=== PATIENT | male | born 1960 | race Caucasian/White ===

== ENCOUNTER → 2016-05-15 | Outpatient (CLI) | payer OTHER ==
[~2016-05-15] MED LIST: AMLODIPINE BESYL5 MG PO; BENADRYL25 M1 PO; ELIQUIS5 MG PO; FOLIC ACID1 MG PO; HUMIBID-LA600 MG PO; LEVAQUIN750 MG PO; LOSARTAN POTAS100 MG PO; METOPROLOL SUCC ER PO; MOBIC PO; MOBIC15 MG PO; OMEPRAZOLE40 M1 PO; PREDNISONE PO; PROAIR HFA8.5 GM IH; PROTONIX PO; SINGULAIR PO; SYMBICORT INH; THERAPEUTIC FOR1 TA1 PO; THIAMINE HCL100 M1 PO; TOPROL XL100 MG PO
--- NOTE | ~2016-05-15 | HM ---
Unit #: [id number] #: [id number] Patient: TASHA KISER [id number] [address] [address] [id number] O MR#: [id number] NAME: TASHA KISER : 1960 SEX: M STUDY DATE/TIME: UNIT: [facility] ROOM: STUDY DESCRIPTION: Holter Monitor Attending Physician: Didi Mast M.D. Referring Physician: Didi Mast M.D. Primary Care Physician: Didi Mast M.D. CARDIOLOGY REPORT EXAM Holter Monitor DATE APPLIED 05/15/2016 DATE SCANNED 05/21/2016 ORDERED BY Didi Mast M.D. READ BY Deion Herrera M.D. INDICATION Palpitations. SUMMARY The patient was monitored for 24 hours. A total of 108,725 QRS complexes were analyzed. Average heart rate was 75 beats per minute. Heart rate histogram appeared normal. Minimum heart rate was 38 beats per minute at approximately 2:20 p.m. Maximum heart rate 158 beats per minute at approximately 3:30 a.m. The rhythm was atrial fibrillation. Ventricular Ectopy: 46 isolated beats, with one five-beat run occurring at approximately 3:50 p.m. Symptoms: None reported. Patient Activated Event: None. IMPRESSION 1. Atrial fibrillation with rare ventricular ectopy, and one five-beat run. 2. Overall, controlled ventricular rate. Dictated by... Deion Herrera M.D. Unit #: [id number] #: [id number] Patient: TASHA KISER PJR/df TD: 05/22/2016 06:04 JOB #: [id number] CARDIOLOGY REPORT Page 1 of 1 X Deion Herrera MD HOLTER MONITOR REPORT
== END | disposition home or self-care (01) ==
LOC: CEKG 10:03
DX: R00.2 Palpitations (principal)
CPT/HCPCS: 93225; 93226

== ENCOUNTER → 2016-07-28 | Day surgery (SDC) | payer OTHER ==
--- NOTE | ~2016-07-28 | OR ---
Unit #: [id number] #: [id number] Patient: TASHA KISER [id number] [address] [address] [id number] O MR#: [id number] NAME: TASHA KISER ROOM: Date of Procedure: 07/28/2016 Admission Date: 07/28/2016 Surgeon: Tony Lazo M.D. : 1960 Attending Physician: Tony Lazo M.D. Primary Care Physician: Didi Mast M.D. OPERATIVE REPORT ADDENDUM PRIMARY CARE PHYSICIAN Didi Mast M.D. DESCRIPTION OF PROCEDURE The scope was advanced past rectosigmoid into descending colon. No diverticula were noticed in this area. The scope tip was then navigated all the way up to cecum with visualization of the ileocecal valve and the appendiceal orifice. Preparation was excellent with good visualization and photodocumentation was obtained. Successive segments of the colonic mucosa were examined upon withdrawal. The patient had a total of four polyps. The first one was in the transverse colon, this was about 8 mm in size. A second polyp was in descending colon, which was fulgurated using a snare cautery tip. Two additional polyps in the sigmoid colon, they were removed using snare polypectomy. The polyps ranged in size from 7 mm to 1.2 cm. The three retrieved polyps were sent for histology. The patient did not have any diverticulosis nor any hemorrhoids. The scope was then withdrawn and the patient returned to recovery area. He tolerated the procedure without any postprocedure complications. Dictated by... Radha Hernandez/cam TD: 07/30/2016 11:19 JOB #: [id number] OPERATIVE REPORT Page 1 of 1 X Tony Lazo MD X PROCEDURE OPERATIVE NOTE
--- NOTE | ~2016-07-28 | OR ---
Unit #: [id number] #: [id number] Patient: TASHA KISER [id number] [address] [address] [id number] O MR#: [id number] NAME: TASHA KISER ROOM: Date of Procedure: 07/28/2016 Admission Date: 07/28/2016 Surgeon: Tony Lazo M.D. : 1960 Attending Physician: Tony Lazo M.D. Primary Care Physician: Didi Mast M.D. OPERATIVE REPORT PREOPERATIVE DIAGNOSES Colorectal cancer screening in an average-risk patient. PROCEDURES PERFORMED Colonoscopy and polypectomy. POSTOPERATIVE DIAGNOSES The patient had 2 polyps in the sigmoid colon, 1 polyp in the descending colon, and 1 polyp in the transverse colon. The transverse colon and sigmoid polyps were removed, retrieved, and sent for histology. The descending colon polyp was fulgurated with the snare cautery tip. The removed polyps ranged in size from 8 mm to 1.2 cm. SEDATION USED MAC. DESCRIPTION OF PROCEDURE Following detailed explanation of the potential risks and complications of a colonoscopy, namely perforation, bleeding, and complications related to sedation, the patient was brought to the GI lab and laid in the left lateral decubitus position. A digital rectal examination was performed, which was normal. Lubricated tip of the Olympus video colonoscope was inserted through the anus and advanced under direct vision. DICTATION ENDS HERE Dictated by... Radha Hernandez/cam TD: 07/29/2016 05:11 JOB #: [id number] Unit #: [id number] #: [id number] Patient: TASHA KISER OPERATIVE REPORT Page 1 of 1 X Tony Lazo MD X PROCEDURE OPERATIVE NOTE
== END | disposition home or self-care (01) ==
LOC: COPS 12:26
DX: Z12.11 Encounter for screening for malignant neoplasm of colon (principal); D12.3 Benign neoplasm of transverse colon; D12.5 Benign neoplasm of sigmoid colon; K63.5 Polyp of colon; I10 Essential (primary) hypertension; F17.200 Nicotine dependence, unspecified, uncomplicated; M19.90 Unspecified osteoarthritis, unspecified site; Z79.1 Long term (current) use of non-steroidal anti-inflammatories (NSAID); Z79.01 Long term (current) use of anticoagulants; Z79.899 Other long term (current) drug therapy; Z96.643 Presence of artificial hip joint, bilateral; Z98.890 Other specified postprocedural states
CPT/HCPCS: 88305; J2250

== ENCOUNTER 2016-08-09 10:11 | Emergency (ER) | payer OTHER ==
--- NOTE | ~2016-08-09 | CT16 ---
[facility] A Service of [facility] RADIOLOGY TEXT RESULTS PATIENT: TASHA KISER LOCATION: [facility] : 56 UNIT #: [id number] AGE: [address]: Morteza Newman MD SEX: M ORDER DR: [id number] [facility] [address] [place], [place] [address] [id number] MR#: [id number] Acc #: [id number] NAME: TASHA KISER : 1960 SEX: M STUDY DATE/TIME: 08/09/2016 12:38 UNIT: [facility] ROOM: STUDY DESCRIPTION: CT Angio Chest for PE Ordering Physician: Murphy Newman M.D. Primary Care Physician: Didi Mast M.D. MEDICAL IMAGING REPORT This report is preliminary unless electronic signature is present EXAM CT angiogram chest with IV contrast HISTORY Shortness of air for 2 weeks. Atrial fibrillation. Hypertension. TECHNIQUE IV contrast enhanced CT angiogram of the chest was performed with 3-D reconstructions. This CT exam was performed with one or more of the following radiation dose reduction techniques: automatic exposure control, adjustment of mA and/or kV according to patient size, and iterative reconstruction. FINDINGS There are very mild patchy nodular infiltrates in the posterior upper lobes bilaterally and mild subpleural atelectasis in the posterior lower lobes bilaterally. No airspace infiltrates. No pleural effusions. No pulmonary embolus. Normal-caliber pulmonary arteries. Normal caliber thoracic aorta. No adenopathy. No pleural effusions. Small calcified inferior right hilar nodes and small calcified granuloma in the posterior right lower lobe. IMPRESSION 1. No pulmonary embolus. 2. Mild subpleural atelectasis in the posterior mid- and lower lungs bilaterally. 3. Mild nonspecific nodular interstitial infiltrates in the posterior upper lobes. These could be infectious or inflammatory. There is no adenopathy. [facility] A Service of [facility] RADIOLOGY TEXT RESULTS PATIENT: TASHA KISER LOCATION: [facility] : 56 UNIT #: [id number] AGE: [address]: Morteza Newman MD SEX: M ORDER DR: Dictated by... Neil Ordaz M.D. THIS IS AN ELECTRONICALLY VERIFIED REPORT Neil Ordaz M.D. at 08/09/2016 10:47 PM DFL/pcl TD: 08/09/2016 14:30 JOB #: [id number] MEDICAL IMAGING REPORT Page 1 of 1 COPY
[~2016-08-09 10:11] MED LIST changes: -METOPROLOL SUCC ER PO
[2016-08-09 11:12] LABS: BASOPHIL# 0.1 X10e3 (0-0.3); EOSINOPHIL# 0.2 X10e3 (0-0.7); EOSINOPHIL% 1.8 % (0.0-7.0); HEMATOCRIT 41.9 % (38.0-50.0); HEMOGLOBIN 13.9 gm/dL (13.0-16.0); LYMPHOCYTE# 1.2 X10e3 (1.0-3.5); LYMPHOCYTE% 14.2 % (17.0-45.0); MEAN CORPUSCULAR HEMOGLOBIN 29.9 PG (28-34); MEAN CORPUSCULAR HGB CONC 33.2 g/dL (30-36); MONOCYTE# 0.8 X10e3 (0-1.0); MONOCYTE% 9.6 % (3.0-12.0); NEUTROPHIL# 6.1 X10e3 (1.5-7.1); NEUTROPHIL% 73.4 % (40-75); PLATELET COUNT 147 X10e3 (140-420); RED BLOOD COUNT 4.66 X10e (3.90-5.60); RED CELL DISTRIBUTION WIDTH 13.6 % (11.0-15.5); WHITE BLOOD COUNT 8.4 X10e3 (4.0-10.5)
[2016-08-09 11:14] LABS: DIFF IND NO
[2016-08-09 11:29] LABS: INR 1.1; PARTIAL THROMBOPLASTIN TIME 29.2 SECONDS (23.5-31.3); PROTHROMBIN TIME (PATIENT) 11.7 SECONDS (10.0-11.7)
[2016-08-09 11:54] LABS: ALBUMIN SERUM 3.8 g/dL (3.5-5.0); BILIRUBIN, DIRECT 0.2 mg/dL (0.0-0.2); BILIRUBIN,INDIRECT 0.7 mg/dL (0.0-0.9); BILIRUBIN,TOTAL 0.9 mg/dL (0.2-2.0); CALCIUM SERUM 8.6 mg/dL (8.4-10.2); CREATININE SERUM 0.6 mg/dL (0.6-1.4); GLOM FILT RATE Estimated 110.9 mL/min (>60); PROTEIN TOTAL SERUM 7.1 g/dL (6.0-8.3)
[2016-08-15] MEDS ORDERED: METOPROLOL SUCC ER PO (09:29)
[2016-08-15] MEDS ORDERED: PROTONIX PO (09:30)
== END 2016-08-09 15:55 | disposition home or self-care (01) ==
LOC: CED 10:11
PROVIDERS: Emergency Medicine
DX: K21.9 Gastro-esophageal reflux disease without esophagitis (principal); D69.6 Thrombocytopenia, unspecified; E87.1 Hypo-osmolality and hyponatremia; I10 Essential (primary) hypertension; K92.1 Melena
CPT/HCPCS: 36415; 71275; 80048; 80076; 85025; 85610; 85730; 86850; 86900; 86901; 94640; 96361; 96374; 96375; 99284; C9113; J2405; Q9967

== ENCOUNTER → 2016-08-11 | Outpatient (CLI) | payer OTHER ==
[~2016-08-11] MED LIST changes: +METOPROLOL SUCC ER PO
[2016-08-11 18:00] LABS: HEMATOCRIT 38.4 % (38.0-50.0); HEMOGLOBIN 12.8 gm/dL (13.0-16.0); MEAN CORPUSCULAR HEMOGLOBIN 29.9 PG (28-34); MEAN CORPUSCULAR HGB CONC 33.2 g/dL (30-36); MEAN PLATELET VOLUME 8.1 FL (6.5-11.5); RED BLOOD COUNT 4.27 X10e (3.90-5.60); RED CELL DISTRIBUTION WIDTH 13.5 % (11.0-15.5)
[2016-08-11 18:19] LABS: BUN/CREATININE RATIO 13.33; CALCIUM SERUM 8.6 mg/dL (8.4-10.2); CREATININE SERUM 0.6 mg/dL (0.6-1.4); GLOM FILT RATE Estimated 110.9 mL/min (>60); POTASSIUM 4.5 mmol/L (3.5-5.1)
== END | disposition home or self-care (01) ==
LOC: CLAB 17:25
PROVIDERS: Nurse Practitioner
DX: K92.1 Melena (principal)
CPT/HCPCS: 36415; 80048; 85027

== ENCOUNTER → 2016-08-15 | Day surgery (SDC) | payer OTHER ==
[2016-08-15 13:37] LABS: BASOPHIL# 0.1 X10e3 (0-0.3); BASOPHIL% 1.2 % (0-2.5); EOSINOPHIL# 0.2 X10e3 (0-0.7); EOSINOPHIL% 1.8 % (0.0-7.0); HEMATOCRIT 40.4 % (38.0-50.0); HEMOGLOBIN 13.3 gm/dL (13.0-16.0); LYMPHOCYTE# 1.2 X10e3 (1.0-3.5); LYMPHOCYTE% 13.5 % (17.0-45.0); MEAN CELL VOLUME 90.5 FL (83-96); MEAN CORPUSCULAR HEMOGLOBIN 29.8 PG (28-34); MEAN PLATELET VOLUME 7.8 FL (6.5-11.5); MONOCYTE# 0.8 X10e3 (0-1.0); MONOCYTE% 9.7 % (3.0-12.0); NEUTROPHIL# 6.3 X10e3 (1.5-7.1); NEUTROPHIL% 73.8 % (40-75); PLATELET COUNT 159 X10e3 (140-420); RED BLOOD COUNT 4.47 X10e (3.90-5.60); RED CELL DISTRIBUTION WIDTH 13.9 % (11.0-15.5); WHITE BLOOD COUNT 8.6 X10e3 (4.0-10.5)
[2016-08-15 13:39] LABS: DIFF IND NO
[2016-08-15 14:09] LABS: BUN/CREATININE RATIO 8.75; CALCIUM SERUM 8.9 mg/dL (8.4-10.2); CREATININE SERUM 0.8 mg/dL (0.6-1.4); GLOM FILT RATE Estimated 98.5 mL/min (>60); POTASSIUM 4.4 mmol/L (3.5-5.1)
== END | disposition home or self-care (01) ==
LOC: COPS 08:56
PROVIDERS: Internal Medicine Gastroenterology
DX: K21.0 Gastro-esophageal reflux disease with esophagitis (principal); K29.00 Acute gastritis without bleeding; I48.91 Unspecified atrial fibrillation; M19.90 Unspecified osteoarthritis, unspecified site; Z85.22 Personal history of malignant neoplasm of nasal cavities, middle ear, and accessory sinuses; Z88.8 Allergy status to other drugs, medicaments and biological substances; Z79.1 Long term (current) use of non-steroidal anti-inflammatories (NSAID); Z79.01 Long term (current) use of anticoagulants; Z79.899 Other long term (current) drug therapy; Z96.643 Presence of artificial hip joint, bilateral; Z98.890 Other specified postprocedural states
CPT/HCPCS: 80048; 85025; 87077; 88305

== ENCOUNTER → 2016-09-02 | Outpatient (CLI) | payer OTHER ==
--- NOTE | ~2016-09-02 | OR ---
Unit #: [id number] #: [id number] Patient: TASHA KISER [id number] [address] [place], [place] [address] [id number] P MR#: [id number] NAME: TASHA KISER ROOM: Date of Procedure: 08/15/2016 Admission Date: 09/02/2016 Surgeon: Tony Lazo M.D. : 1960 Attending Physician: Kari Ramos A.P.R.N. Referring Physician: Kari Ramos A.P.R.N. Primary Care Physician: Didi Mast M.D. OPERATIVE REPORT PREOPERATIVE DIAGNOSES The patient has presented with history of melena. It is noteworthy that he had a colonoscopy on 07/28/2016 and had polypectomy at that time. His hemoglobin however is normal. PROCEDURES PERFORMED Upper gastrointestinal endoscopy and biopsy. POSTOPERATIVE DIAGNOSES 1. The patient had changes suggestive of Lott esophagus. These were in the form of tongues of columnar mucosa ascending above the gastroesophageal junction; however, no esophagitis or stricture was present. Appropriate biopsies were obtained from the Lott segment and sent for histology. 2. Mild prepyloric antral erosive gastritis. This was in the form of erosions and erythema in the antral area fairly localized in the prepyloric antral area. A biopsy was obtained from the antrum for CLOtest. 3. Rest of the examination up to third part of duodenum was normal. RECOMMENDATIONS The patient's stat hemoglobin was done and was normal. He however was found to have hyponatremia with a sodium of 128. This has been noted even earlier. The patient will be evaluated in the office in the next 10 to 12 weeks' time. It is possible the underlying hyponatremia is a consequence of syndrome of inappropriate ADH secretion and a workup will be needed for the latter. SEDATION USED MAC. DESCRIPTION OF PROCEDURE Following detailed explanation of the potential risks and complications of an upper endoscopy, namely perforation, bleeding, and complications related to sedation, the patient was brought to GI lab and laid in the left lateral decubitus position. Lubricated tip of the Olympus video upper endoscope was passed through the bite block into the proximal esophagus under direct vision. The entire esophageal mucosa was examined and the patient was noted to have changes of Lott esophagus with characteristic tongues of columnar mucosa ascending above the gastroesophageal junction. The Lott segment was short segment less than 3 cm in length. No esophagitis or stricture was present. The scope was then advanced into the gastric cavity and the latter was insufflated. Unit #: [id number] #: [id number] Patient: TASHA KISER Mucosa of the fundus, body, and antrum was examined. Diffuse mild prepyloric antral erythema erosions were noted indicating antral gastritis. Pylorus was intubated with visualization of the normal duodenal bulb and second and third part of the duodenum. Upon withdrawal and retroflexion; incisura, cardia, and greater curve was examined and biopsy was obtained from the antrum for CLOtest. The scope was then withdrawn in the distal esophagus. Multiple biopsies were also obtained from the Lott segment and sent for histology. The entire esophageal mucosa was examined all the way up to pharynx. No additional findings were noted. The patient tolerated the procedure without any postprocedure complications. Dictated by... Radha Hernandez/cam TD: 08/19/2016 13:39 JOB #: [id number] CC: Didi Mast M.D. OPERATIVE REPORT Page 1 of 1 X Tony Lazo MD X PROCEDURE OPERATIVE NOTE
--- NOTE | ~2016-09-02 | CT55 ---
[facility] A Service of [facility] RADIOLOGY TEXT RESULTS PATIENT: TASHA KISER [facility] : 56 UNIT #: [id number] AGE: [address]: Kari Ramos SEX: M ORDER DR: [id number] [place] [address] [facility]. [place], [place] [address] [id number] O MR#: [id number] Acc #: [id number] NAME: TASHA KISER : 1960 SEX: M STUDY DATE/TIME: 09/02/2016 10:34 UNIT: [facility] ROOM: STUDY DESCRIPTION: CT Chest W Con Attending Physician: Kari Ramos A.P.R.N. Referring Physician: Kari Ramos A.P.R.N. Ordering Physician: Kari Ramos A.P.R.N. Primary Care Physician: Didi Mast M.D. MEDICAL IMAGING REPORT This report is preliminary unless electronic signature is present EXAM CT chest INDICATIONS Shortness of air. Atrial fibrillation. Bibasilar atelectasis. Pulmonary infiltrate. TECHNIQUE CT of the chest utilizing 70 mL Isovue-370 IV contrast. Coronal and sagittal reconstructions were obtained. The CT exam was performed with one or more of the following radiation dose reduction techniques: automatic exposure control, adjustment of mA and/or kV according to patient size, and iterative reconstruction. COMPARISON CT chest dated 08/09/2016. FINDINGS The interstitial opacities described in the right upper lobe and left upper lobe on the 08/09/2016 exam have resolved. There is mild linear atelectasis/were atelectasis/scarring in the posterior aspect of both lower lobes. These opacities have improved since the prior study. There are no new pulmonary opacities. There are some benign calcified granulomas in both lungs. The heart is enlarged. No pericardial or pleural effusion. Thoracic aorta is normal in caliber. Extensive coronary calcifications are noted. Limited images of the upper abdomen were obtained. [facility] A Service of [facility] RADIOLOGY TEXT RESULTS PATIENT: TASHA KISER LOCATION: [facility] : 56 UNIT #: [id number] AGE: [address]: Kari Ramos SEX: M ORDER DR: No acute osseous abnormalities. IMPRESSION 1. Resolved interstitial opacities in both upper lobes. 2. Significantly improved atelectasis in both lung bases. There is a small amount of peripheral band-like linear densities which probably represents some atelectasis or subpleural scarring. 3. Evidence of granulomatous disease with multiple benign calcified pulmonary nodules. Dictated by... Jason Patel M.D. THIS IS AN ELECTRONICALLY VERIFIED REPORT Jason Patel M.D. at 09/03/2016 8:02 AM LISA/nasir TD: 09/03/2016 07:33 JOB #: [id number] MEDICAL IMAGING REPORT Page 1 of 1 COPY
== END | disposition home or self-care (01) ==
LOC: CCAT 10:00
DX: R06.02 Shortness of breath (principal); I48.91 Unspecified atrial fibrillation; R93.8 Abnormal findings on diagnostic imaging of other specified body structures; R91.8 Other nonspecific abnormal finding of lung field; J98.11 Atelectasis; J98.4 Other disorders of lung; D71 Functional disorders of polymorphonuclear neutrophils
CPT/HCPCS: 71260; Q9967

== ENCOUNTER 2016-10-07 13:36 | Emergency (ER) | payer OTHER ==
[~2016-10-07] VITALS: Ht 188 cm; Wt 127.0 kg
== END 2016-10-07 15:47 | disposition home or self-care (01) ==
LOC: CED 13:36
DX: S81.811A Laceration without foreign body, right lower leg, initial encounter (principal); I10 Essential (primary) hypertension; I48.91 Unspecified atrial fibrillation; Z88.8 Allergy status to other drugs, medicaments and biological substances; Z23 Encounter for immunization; W45.8XXA Other foreign body or object entering through skin, initial encounter; Y92.009 Unspecified place in unspecified non-institutional (private) residence as the place of occurrence of the external cause
CPT/HCPCS: 12002; 90471; 90715; 99283